=== PATIENT | male | born 2000 | race Caucasian/White ===

== ENCOUNTER 2022-05-31 00:55 | Emergency (ER) | payer SELFPAY ==
[~2022-05-31] VITALS: Ht 165.1 cm; Wt 52.0 kg
[2022-05-31 01:53] VITALS: BP 108/80
--- NOTE | 2022-05-31 01:59 | ED Psychosocial ---
General Chief Complaint: General Problems/Pain Stated Complaint: SUICIDAL COMMENTS Source: patient, EMS Exam Limitations: no limitations History of Present Illness Date Seen by Provider: May 31, 2022 Time Seen by Provider: 00:59 Initial Comments This 22-year-old young man presents to the emergency room via [facility] for reasons of suicidal ideation. Reportedly he had contacted the [facility] crisis line and made some suicidal expressions. The crisis line then contacted law enforcement. He reportedly made a similar comments to law enforcement. EMS staff report no suicidal comments were made to them. Patient reportedly recently lost his job and was distressed about that. Patient denies any suicidal ideation to ER staff. I possibly observed his arrival and spoke with EMS staff and ER staff about his presentation. Orders were placed for psychiatric evaluation. Ultimately, patient left AGAINST MEDICAL ADVICE before he could be formally interviewed and examined by this provider. [facility] deputy was notified. Allergies and Home Medications Patient Home Medication List Home Medication List Reviewed: Yes Review of Systems Constitutional: no symptoms reported EENTM: no symptoms reported Respiratory: no symptoms reported Cardiovascular: no symptoms reported Gastrointestinal: no symptoms reported Genitourinary: no symptoms reported Musculoskeletal: no symptoms reported Skin: no symptoms reported Psychiatric/Neurological: See HPI Physical Exam Vital Signs - First Documented 05/31/22 00:56 Temp 35.9 Pulse 70 Resp 16 B/P (MAP) 108/80 (89) Pulse Ox 97 O2 Delivery Room Air Capillary Refill : Height, Weight, BMI Height: '" Weight: lbs. oz. kg; BMI Method: General Appearance: WD/WN, no apparent distress, thin Neurologic/Psychiatric: alert, oriented x 3, other (Denied suicidal or homicidal ideation) Appearance/Memory: appropriate appearance Behavior/Eye Contact: uncooperative, other (Left AGAINST MEDICAL ADVICE, refused evaluation with urinalysis or blood draw) Suicide Risk Suicide Risk Suicide Risk Level / RN Screen: Low (Patient denied any suicidal ideation to ER staff.) Low Suicide Risk Level []Suicidal Ideation WITHOUT method, intent, plan or behavior more than a month ago []]Modifiable risk factors and strong protective factors []No reported history of suicidal ideation or behavior []Patient reports/exhibits symptoms consistent with psychosis []Patient reports a plan that would be unrealistic/impossible to complete and intent []Suicide attempt prior to arrival (Indicates at LEAST Low Suicide Risk, consider other risk factors) Moderate Suicide Risk Level: []Suicidal ideation with method, WITHOUT plan, intent or behavior in the past month []Multiple risk factors and few protective factors []Patient reports intent to follow through on plan to end life if allowed to leave hospital, and has attempted to elope from the hospital High Suicide Risk Level: [] Suicidal ideation with intent or intent with a plan in the past month [] Patient has harmed self or attempted suicide while in the hospital [] Patient has hx of or current Command Auditory hallucinations to harm self or others that they follow without hesitation [] Patient refuses to disclose plan, and indicates intent to complete [] Patient reports plan that is possible to accomplish and/or has means to complete Risk factors supporting recommendation: [] Non-compliance with treatment (acute or chronic) [] Patient has access to or owns firearms and/or stockpiled medications [] Hx Impulsive behavior [] Pending incarceration or homelessness [] Sexual abuse [] Family history and/or exposure to suicide [] Adverse childhood experiences [] Exposure to violence or negative socio-political cultural, and economic forces [] Current or hx of substance use/abuse [] Chronic physical pain or other acute medical problem (AIDS, COPD, Cancer, etc) [] Perceived burden on family or others [] Patient has attempted to elope [] Unable to answer and/or unable to identify [] Refuses to agree to a safety plan Protective Factors supporting recommendation: [] Identifies reasons for living [] Future plans/goals [] Engaged in work or School [] Good family support network [] Good social support network [] Responsibility to family [] Belief that suicide is immoral, against their scientology beliefs [] High spirituality and involvement in uatsdin community [] Fear of or dying due to pain and suffering [] Established outpt psychiatric services [] Unable to answer and/or unable to identify Progress/Results/Core Measures Results/Orders My Orders Orders - JULIO CHARLES MD Ed Iv/Invasive Line Start (05/31/22 01:02) Monitor-Rhythm Ecg Trace Only (05/31/22 01:02) Bh Status Checks/Observation Q15M (05/31/22 01:02) Progress Progress Note : Time: 01:57 Progress Note Patient repeatedly denied any suicidal or self-harm thoughts. He refused any work-up. Initial studies required for behavioral health screening were ordered but patient refused to provide specimens. He decided not to wait to be seen by a provider and left AGAINST MEDICAL ADVICE. Departure Impression Primary Impression: History of suicidal ideation Additional Impression: Left against medical advice Disposition: AGAINST MEDICAL ADVICE Condition: Against Medical Advice Departure-Patient Inst. Referrals: NO,LOCAL PHYSICIAN (PCP) Primary Care Physician JULIO CHARLES MD May 31, 2022 01:59
== END 2022-05-31 01:53 | disposition left against medical advice (07) ==
LOC: ER 00:59
DX: Z13.30 Encounter for screening examination for mental health and behavioral disorders, unspecified (principal); Z91.51 Personal history of suicidal behavior; Z28.310 Unvaccinated for COVID-19
CPT/HCPCS: 99283